=== PATIENT | male | born 1950 | race Caucasian/White ===

== ENCOUNTER 2017-01-01 12:24 | Outpatient (CLI) | payer MEDICARE ==
[2013-05-03 05:41] VITALS: BP 155/94
== END 2017-01-01 12:25 ==
LOC: CARD 12:24
PROVIDERS: ATTEND Internal Medicine Cardiovascular Disease
DX: I35.0 Nonrheumatic aortic (valve) stenosis (principal); Z95.4 Presence of other heart-valve replacement
CPT/HCPCS: G0463

== ENCOUNTER 2017-03-19 10:38 | Outpatient (CLI) | payer MEDICARE ==
[2013-05-03 05:41] VITALS: BP 155/94
== END 2017-03-19 10:40 ==
LOC: LAB 10:38
PROVIDERS: ATTEND Internal Medicine Cardiovascular Disease
DX: Z95.4 Presence of other heart-valve replacement (principal)
CPT/HCPCS: 36415; 80061

== ENCOUNTER 2017-03-26 11:38 | Outpatient (CLI) | payer MEDICARE ==
[2013-05-03 05:41] VITALS: BP 155/94
== END 2017-03-26 11:40 ==
LOC: CARD 11:38
PROVIDERS: ATTEND Internal Medicine Cardiovascular Disease
DX: E78.5 Hyperlipidemia, unspecified (principal)
CPT/HCPCS: G0463

== ENCOUNTER 2017-07-04 09:04 | Outpatient (CLI) | payer MEDICARE ==
[2013-05-03 05:41] VITALS: BP 155/94
== END 2017-07-04 09:05 ==
LOC: LAB 09:04
PROVIDERS: ATTEND Internal Medicine Cardiovascular Disease
DX: E78.5 Hyperlipidemia, unspecified (principal)
CPT/HCPCS: 36415; 80061

== ENCOUNTER 2017-11-06 14:36 | Outpatient (CLI) | payer MEDICARE ==
[2013-05-03 05:41] VITALS: BP 155/94
--- NOTE | 2017-11-06 15:22 | Diagnostic Imaging Report ---
NEFTALI JENOG [facility] [address] [facility] [address] [address] Report Submission Date: Nov 06, 2017 3:08:39 PM STORE OPERATIONS ASSOCIATE Patient Study Name: JEANCARLOS SEE Date: Nov 06, 2017 2:48:43 PM STORE OPERATIONS ASSOCIATE Modality Type: CR Gender: M Description: LOWER EXTREMITY : 46 Institution: [facility] Physician: NEFTALI JEONG Examination: Plain film knee History: Knee discomfort Findings: 3 views of the knee demonstrates osteopenia. Patellar spurring. Medial joint space narrowing. No fracture. No dislocation. No joint effusion. Impression: Osteopenia and degenerative changes. No evidence for fracture. Electronically signed on Nov 06, 2017 3:08:39 PM STORE OPERATIONS ASSOCIATE by: Ky VARELA
== END 2017-11-06 14:37 ==
LOC: RAD 14:36
PROVIDERS: ATTEND Family Medicine
DX: M25.561 Pain in right knee (principal)
CPT/HCPCS: 73562

== ENCOUNTER 2018-04-08 13:38 | Outpatient (CLI) | payer MEDICARE ==
[2013-05-03 05:41] VITALS: BP 155/94
== END 2018-04-08 13:40 ==
LOC: CARD 13:38
PROVIDERS: ATTEND Internal Medicine Cardiovascular Disease
DX: Z95.2 Presence of prosthetic heart valve (principal); I25.10 Atherosclerotic heart disease of native coronary artery without angina pectoris; I10 Essential (primary) hypertension; E78.5 Hyperlipidemia, unspecified; I71.4 Abdominal aortic aneurysm, without rupture
CPT/HCPCS: G0463

== ENCOUNTER 2019-09-07 14:14 | Outpatient (CLI) | payer MEDICARE ==
[2013-05-03 05:41] VITALS: BP 155/94
[2019-09-07 14:39] LABS: HDL 43 mg/dL (>40); eGFR (Non-African) > 60
[2019-09-07 14:53] LABS: BASOPHILS % 0.5 % (0.0-1.5); NEUTROPHILS # 4.7 # k/uL (1.4-7.7)
[2019-09-07 14:54] LABS: SEGMENTED NEUTROPHILS % 53 % (39-79)
== END 2019-09-07 14:19 ==
LOC: LAB 14:14
PROVIDERS: ATTEND Family Medicine
DX: I10 Essential (primary) hypertension (principal); E78.1 Pure hyperglyceridemia; N40.1 Benign prostatic hyperplasia with lower urinary tract symptoms
CPT/HCPCS: 36415; 80053; 80061; 84153; 85025